=== PATIENT | female | born 1975 | race Caucasian/White ===

== ENCOUNTER → 2018-10-04 | Outpatient (CLI) | payer BC ==
--- NOTE | 2018-10-04 18:29 | ECHOF ---
Referral Reason:I10 Hypertension MEASUREMENTS -------- HEIGHT: 172.7 cm WEIGHT: 72.6 kg BP: 136/86 RVIDd: 2.8 cm (< 3.3) IVSd: 1.2 cm (0.6 - 1.1) LVIDd: 4.4 cm (3.9 - 5.3) LVPWd: 1.1 cm (0.6 - 1.1) IVSs: 1.7 cm LVIDs: 2.9 cm LVPWs: 1.5 cm LA Diam: 3.7 cm (2.7 - 3.8) LAESV Index (A-L): 26.28 ml/m Ao Diam: 2.9 cm (2.0 - 3.7) AV Cusp: 2.1 cm (1.5 - 2.6) MV EXCURSION: 19.176 mm (> 18.000) MV EF SLOPE: 73 mm/s (70 - 150) EPSS: 0.4 cm MV E Roberto Carlos: 0.73 m/s MV DecT: 253 ms MV A Roberto Carlos: 0.54 m/s MV E/A Ratio: 1.35 RAP: 5.00 mmHg RVSP: 19.65 mmHg FINDINGS -------- Sinus rhythm. This was a technically good study. The left ventricular size is normal. There is borderline concentric left ventricular hypertrophy. Overall left ventricular systolic function is normal with, an EF between 60 - 65 %. The right ventricle is normal in size. Normal LA size by volume 22+/-6 ml/m2. The right atrium is normal in size. The aortic valve is trileaflet and appears structurally normal. The mitral valve is normal. There is trace mitral regurgitation. Mild tricuspid regurgitation present. Right ventricular systolic pressure is normal at < 35 mmHg. There is no pulmonic regurgitation present. The aortic root size is normal. Normal inferior vena cava with normal inspiratory collapse consistent with estimated right atrial pre ssure of 5 mmHg. There is no pericardial effusion. CONCLUSIONS -------- 1. Sinus rhythm. 2. This was a technically good study. 3. The left ventricular size is normal. 4. There is borderline concentric left ventricular hypertrophy. 5. Overall left ventricular systolic function is normal with, an EF between 60 - 65 %. 6. Normal LA size by volume 22+/-6 ml/m2. 7. The aortic valve is trileaflet and appears structurally normal. 8. The mitral valve is normal. 9. There is trace mitral regurgitation. 10. Mild tricuspid regurgitation present. 11. Right ventricular systolic pressure is normal at < 35 mmHg. 12. There is no pulmonic regurgitation present. 13. The aortic root size is normal. 14. Normal inferior vena cava with normal inspiratory collapse consistent with estimated right atrial pressure of 5 mmHg. 15. There is no pericardial effusion. RETAIL TEAM MEMBER: Debra Bess RDCS
== END | disposition home or self-care (01) ==
LOC: RADECHMAIN 14:47
PROVIDERS: ATTEND Family Medicine
DX: I08.1 Rheumatic disorders of both mitral and tricuspid valves (principal)
CPT/HCPCS: 93306

== ENCOUNTER → 2020-12-22 | Outpatient (CLI) | payer OTHER | END | disposition home or self-care (01) | LOC: LABWHC1 09:03 | PROVIDERS: ATTEND Psychiatry & Neurology Neurology | DX: G60.3 Idiopathic progressive neuropathy (principal) | CPT/HCPCS: 36415; 82607; 82947; 84439; 84443 ==

== ENCOUNTER → 2021-02-16 | Outpatient (CLI) | payer OTHER ==
--- NOTE | 2021-02-17 02:34 | MR ---
EXAMINATION TYPE: MR brain wo/w con DATE OF EXAM: 02/16/2021 COMPARISON: HISTORY: Intermittent paresthesia of hand and foot, rule out MS. CONTRAST: Standard multiplanar, multisequence MRI departmental protocol utilizing 7 mL intravenous Gadavist tito olinium contrast. Ventricles have normal size. There is no mass effect nor midline shift. There is no evidence of intra cranial hemorrhage. Diffusion images show no evidence of an acute infarct. There is a linear area of mixed signal in the right posterior frontal lobe that extends to the fronta l horn of the right lateral ventricle. This could be previous shunt catheter path. There is some mini mal cortical increased signal on the FLAIR images in the insula of the right temporal lobe. The brain stem is intact. Cerebellum is intact. Sella turcica appears normal. Corpus callosum appears normal. T here is a single 4 mm focus of increased signal adjacent to the corpus callosum on the right side ant eriorly on the FLAIR images. The contrast images show no pathologic enhancement. There is normal enha ncement of the venous sinuses. IMPRESSION: Linear defect in the right posterior frontal lobe probably from shunt catheter. Single small focus of increased signal adjacent to the corpus callosum on the right side. I do not se e convincing evidence for demyelinating disease.
== END | disposition home or self-care (01) ==
LOC: RADMRIMAIN 17:59
PROVIDERS: ATTEND Psychiatry & Neurology Neurology
DX: G93.89 Other specified disorders of brain (principal)
CPT/HCPCS: 70553; A9585

== ENCOUNTER → 2021-03-25 | Outpatient (CLI) | payer OTHER ==
[2021-03-25 15:29] LABS: T4, Free (Free Thyroxine) 0.83 ng/dL (0.78-2.19)
--- NOTE | 2021-03-26 22:34 | MR ---
MRI CERVICAL SPINE: CLINICAL HISTORY: Headache, fatigue, neck pain, numbness and paresthesia hands for 18 months. TECHNIQUE: Multiplanar, multisequence imaging of the cervical spine is performed without IV contrast. Demyelinating disease protocol. COMPARISON: None. FINDINGS: Sagittal images of the cervical spine show the craniocervical junction to appear within nor mal limits. The cervical and upper thoracic spinal cord is normal in course, caliber, and signal. V ertebral alignment is anatomic. The vertebral body and intravertebral disk heights are normal. The bone marrow signal intensity is within normal limits. Axial images show C2-C3, C3-C4, and C4-C5 levels all to appear within normal limits. Axial images at C5-C6 level and mild/moderate broad-based posterior disc protrusion effacing the ante rior thecal sac, patent bilateral neural foramina. Axial images at C6-C7 and C7-T1 levels appear within normal limits. IMPRESSION: Degenerative changes C5-C6 level as detailed above. No abnormal T2 hyperintense lesions i n cord to suggest demyelinating disease involvement.
== END | disposition home or self-care (01) ==
LOC: RADMRIMAIN 14:27
PROVIDERS: ATTEND Psychiatry & Neurology Neurology
DX: M47.816 Spondylosis without myelopathy or radiculopathy, lumbar region (principal)
CPT/HCPCS: 36415; 72141; 84439; 84443; 84450; 84460; 86618

== ENCOUNTER → 2021-12-24 | Outpatient (CLI) | payer OTHER ==
[2021-12-24 16:51] LABS: Basophils # (A) 0.03 X 10*3/uL (0.00-0.10); Basophils % (A) 0.4 %; Eosinophils # (A) 0.14 X 10*3/uL (0.04-0.35); Eosinophils % (A) 1.8 %; HCT 43.1 % (37.2-46.3); HGB 13.6 g/dL (12.0-15.0); Immature Grans, Automated 0.3 %; Lymphocytes # (A) 1.55 X 10*3/uL (0.90-5.00); Lymphocytes % (A) 19.6 %; MCH 29.8 pg (27.0-32.0); MCHC 31.6 g/dL (32.0-37.0); MCV 94.5 fL (80.0-97.0); Mean Platelet Volume 10.4 fL (9.5-12.2); Monocytes # (A) 0.52 X 10*3/uL (0.20-1.00); Monocytes % (A) 6.6 %; NRBC Per 100 WBC 0 /100 WBCS (0.0-0.0); Neutrophils # (A) 5.66 X 10*3/uL (1.80-7.70); Neutrophils % (A) 71.3 %; Platelet Count 370 X 10*3/uL (140-440); RBC 4.56 X 10*6/uL (4.10-5.20); RDW 12.7 % (11.5-14.5); WBC 7.92 X 10*3/uL (4.50-10.00)
[2021-12-24 17:12] LABS: ALT 201 U/L (8-44); AST 68 U/L (13-35); African American GFR (CKD) 128.5 (60.0-200.0); Albumin 4.7 g/dL (3.8-4.9); Albumin/Globulin Ratio 2.24 (1.60-3.17); Alkaline Phosphatase 72 U/L (41-126); BUN/Creat Ratio 16.67 Ratio (12.00-20.00); C Reactive Protein <0.30 mg/dL (0.00-0.80); Calcium 9.4 mg/dL (8.7-10.3); Chloride 100 mmol/L (96-109); Follicle Stimulating Hormone 5.6 mIU/mL; Globulin 2.1 g/dL (1.6-3.3); Glucose 98 mg/dL (70-110); LDL Cholesterol,Calculated 169.9 mg/dL (0.0-131.0); Luteinizing Hormone 16.6 mIU/mL; Non-African American GFR(CKD) 110.9 (60.0-200.0); Potassium 4.4 mmol/L (3.5-5.5); Rheumatoid Factor, Qnt <10 IU/mL (0-15); Sodium 137 mmol/L (135-145); Total Protein 6.8 g/dL (6.2-8.2)
[2021-12-24 18:09] LABS: Erythrocyte Sedimentation Rate 3 mm/Hr (0-20)
== END | disposition home or self-care (01) ==
LOC: LABWHC1 10:16
PROVIDERS: ATTEND Family Medicine
DX: Z13.220 Encounter for screening for lipoid disorders (principal); R53.83 Other fatigue; N95.1 Menopausal and female climacteric states
CPT/HCPCS: 36415; 80053; 80061; 82040; 82306; 82607; 82626; 82672; 82746; 83001; 83002; 84144; 84270; 84403; 84439; 84443; 85025; 85652; 86038; 86140; 86431

== ENCOUNTER → 2022-01-06 | Outpatient (CLI) | payer OTHER | END | disposition home or self-care (01) | LOC: LABWHC1 09:31 | PROVIDERS: ATTEND Family Medicine | DX: E28.0 Estrogen excess (principal) | CPT/HCPCS: 36415; 82105; 82397; 83520; 86304; 86336 ==

== ENCOUNTER → 2022-01-13 | Outpatient (CLI) | payer OTHER ==
--- NOTE | 2022-01-13 15:53 | US ---
EXAMINATION TYPE: US pelvic complete DATE OF EXAM: 01/13/2022 COMPARISON: NONE CLINICAL HISTORY: E28.0 Estrogen excess. abn labs, possible menopause, IUD 2020 - no cycles since, TECHNIQUE: TA. Transabdominal sonographic images of the pelvis were acquired. Date of LMP: 2019 EXAM MEASUREMENTS: Uterus: 9.3 x 8.0 x 4.7 cm Endometrial Stripe: 0.4 cm Right Ovary: 2.6 x 2.7 x 2.0 cm Left Ovary: 2.9 x 1.8 x 2.9 cm 1. Uterus: Anteverted wnl 2. Endometrium: IUD seen within fundal portion 3. Right Ovary: dominate follicle seen = 1.8cm 4. Left Ovary: wnl 5. Bilateral Adnexa: wnl 6. Posterior cul-de-sac: wnl IMPRESSION: 1. Dominant follicle right ovary. 2. IUD as noted above.
== END | disposition home or self-care (01) ==
LOC: RADUSWWP 15:23
PROVIDERS: ATTEND Family Medicine
DX: N83.01 Follicular cyst of right ovary (principal); Z97.5 Presence of (intrauterine) contraceptive device
CPT/HCPCS: 76856

== ENCOUNTER → 2022-04-07 | Outpatient (CLI) | payer OTHER | END | disposition home or self-care (01) | LOC: LABPAT 14:57 | PROVIDERS: ATTEND Orthopaedic Surgery | DX: Z01.812 Encounter for preprocedural laboratory examination (principal); Z22.322 Carrier or suspected carrier of Methicillin resistant Staphylococcus aureus; M16.12 Unilateral primary osteoarthritis, left hip | CPT/HCPCS: 87070 ==

== ENCOUNTER 2022-04-17 06:06 | Day surgery (SDC) | payer OTHER ==
[2022-04-14 08:43] VITALS: BMI 25.0
--- NOTE | 2022-04-16 14:55 | HP ---
HISTORY AND PHYSICAL REASON FOR ADMISSION: Surgery scheduled for 04/17/2022 HISTORY OF PRESENT ILLNESS: Lucila Green is a 47-year-old patient seen with symptomatic left hip osteoarthritis. We discussed options for treatment. She elected to proceed with direct anterior left total hip arthroplasty. Consent was obtained. PAST MEDICAL HISTORY: Hypertension. SURGICAL HISTORY: section, wrist surgery. DAILY MEDICATIONS: Losartan, metoprolol, Diclofenac. ALLERGIES: None. SOCIAL HISTORY: She denies tobacco use. PHYSICAL EXAMINATION: Evaluation left hip: Diffuse tenderness. Limited range of motion, severe pain. Positive hip impingement sign. Straight-leg raise negative. Distal neurovascular exam intact. RADIOGRAPHS: Left hip radiographs reveal severe osteoarthritis. IMPRESSION: 1. Left hip osteoarthritis. 2. Hypertension. PLAN: Direct anterior left total hip arthroplasty. Surgery scheduled for 04/17/2022. MMODL / IJN: [id number] /
[~2022-04-17 06:06] MED LIST: ACETAMINOPHEN TAB 500 MG TAB PO PRN; MELOXICAM 7.5 MG TAB PO PRN; TRANEXAMIC ACID IN NACL,ISO-OS 1,000 MG in SALINE 1 100ML.BAG IVPB PRN
[2022-04-17 06:56] VITALS: RESP 16
[2022-04-17] MEDS ORDERED: LACTATED RINGERS 1,000 ML IV ONE ×3 (06:56→11:11)
[2022-04-17] MEDS ORDERED: ONDANSETRON 4 MG/2 ML VIAL ONE (07:04)
[2022-04-17] MEDS ORDERED: DEXAMETHASONE SOD PHOSPHATE 4 MG/ML 1 ML VIAL IV ONE (07:10)
[2022-04-17] MEDS ORDERED: fentaNYL (PF) 50 MCG/ML 2 ML AMP IV ONE (07:16)
[2022-04-17] MEDS ORDERED: MIDAZOLAM 2 MG/2 ML VIAL IV ONE (07:16)
[2022-04-17] MEDS ORDERED: MIDAZOLAM 2 MG/2 ML VIAL ONE (07:34)
[2022-04-17] MEDS ORDERED: hydrALAZINE HCL 20 MG/ML 1 ML VIAL ONE (07:34)
[2022-04-17] MEDS ORDERED: fentaNYL (PF) 50 MCG/ML 2 ML AMP ONE (07:34)
[2022-04-17] MEDS ORDERED: PROPOFOL 10 MG/ML 20 ML VIAL IV ONE (07:34)
[2022-04-17] MEDS ORDERED: ROPIVACAINE 5 MG/ML 30 ML VIAL ONE (07:34)
[2022-04-17] MEDS ORDERED: SUCCINYLCHOLINE CHLORIDE 100 MG/5 ML SYR IV ONE (07:34)
[2022-04-17] MEDS ORDERED: LIDOCAINE 2% INJ 20 MG/ML (2 ML VIAL) ONE (07:34)
[2022-04-17] MEDS ORDERED: HYDROmorphone (PF) 1 MG/ML ONE (07:34)
[2022-04-17] MEDS ORDERED: GLYCOPYRROLATE 0.2 MG/ML 2 ML VIAL ONE (07:34)
[2022-04-17] MEDS ORDERED: NEOSTIGMINE 1 MG/ML 10 ML VIAL ONE (07:34)
[2022-04-17] MEDS ORDERED: ROCURONIUM 10 MG/ML (5 ML VIAL) IV ONE (07:34)
[2022-04-17] MEDS ORDERED: TRANEXAMIC ACID IN NACL,ISO-OS 1,000 MG/100 ML BAG ONE (07:34)
[2022-04-17] MEDS ORDERED: ceFAZolin 1,000 MG in SODIUM CHLORIDE 0.9% 1,000 ML IRRIGATION ONE (08:12)
[2022-04-17] MEDS ORDERED: ONDANSETRON 4 MG/2 ML VIAL IVP PRN (09:33)
[2022-04-17] MEDS ORDERED: HYDROcodone/APAP 5-325MG 1 EACH TAB PO PRN (09:33)
[2022-04-17] MEDS ORDERED: HYDROcodone/APAP 7.5-325MG 1 EACH TAB PO PRN (09:33)
[2022-04-17] MEDS ORDERED: NALOXONE 0.4 MG/ML 1 ML VIAL IV PRN (09:33)
[2022-04-17] MEDS ORDERED: HYDROmorphone 1 MG/ML 1 ML SYRINGE IVP PRN (09:33)
[2022-04-17] MEDS ORDERED: HYDROmorphone 0.5 MG/0.5 ML SYRINGE IVP PRN ×2 (09:33)
--- NOTE | 2022-04-17 09:33 | P.OP ---
Date of Procedure: 04/17/22 Preoperative Diagnosis: Left hip osteoarthritis Postoperative Diagnosis: Left hip osteoarthritis Procedure(s) Performed: Direct anterior left total hip arthroplasty Implants: 1. Depuy Corail when 35 standard collar KA size 11 press-fit femoral stem 2. Depuy pinnacle 54 mm press-fit acetabular shell 3. Depuy pinnacle neutral polyethylene acetabular liner 36 mm ID 54 mm OD 4. Biolox delta ceramic femoral head +1.5 36 mm Anesthesia: GETA, regional (Fascia iliaca block) Surgeon: Cruz Hardin Divemaster #1: Nathaniel Valentin Estimated Blood Loss (ml): 750 Pathology: other (Femoral head) Condition: stable Disposition: PACU Indications for Procedure: 47-year-old patient seen with symptomatic left hip osteoarthritis. After having treatment options discussed, she elected to proceed with direct anterior left total hip arthroplasty. Operative Findings: see description of procedure Description of Procedure: The patient was taken to the operative suite after having a fascia iliaca block performed by the department of anesthesia for postoperative pain management. Patient underwent a spinal anesthetic by the department of anesthesia. Patient was then transferred to the [place] table. Patient was given preoperative IV antibiotics and TXA. Both lower extremities were placed in standard leg spars. The hip was then prepped and draped in the normal sterile orthopedic fashion. A standard anterior incision was made beginning 3 cm lateral and 1 cm distal to the ASIS extending 10 cm. Dissection was then carried down through the subcutaneous soft tissues down to the fascia overlying the tensor fascia justine. An incision was now made through the fascia. Careful dissection was taken down exposing the tensor fascia justine muscle. A Cobra retractor was now placed along the medial femoral neck and a second one along the lateral femoral neck. The venous circumflex vessels were now identified, cauterized and clipped. We identified the anterior hip capsule. An incision was made through the hip capsule along the lateral border. I performed a partial anterior capsulectomy. Retractors were now placed around the femoral neck itself. A femoral neck cut was now made with a sagittal saw. It was completed with an osteotome at the lateral neck area. The femoral head was now removed without difficulty. The extremity was now rotated to 60 of external rotation. It was locked in position. Residual labrum was now debrided out. Serial reaming was performed of the acetabulum while Ervin ORTIZ assisted holding an anterior retractor for exposure. Once we reached the appropriate size and a trial was position and fit nicely. The appropriate size was now chosen opened and made available. It was introduced into the acetabulum without difficulty. The C-arm/fluoroscopy was now brought into the operative field. We made sure we had a true AP pelvic view. We now under direct C-arm/fluoroscopy introduced into the acetabular component with appropriate version and inclination. I held the cup in appropriate position well Ervin ORTIZ used a mallet to seat the acetabular component. I noted the component now to be well seated and stable. Acetabular cup introduce her was removed. The C-arm was pulled back. An appropriate liner was introduced and clicked into position. It was felt to be stable. At this point retractors were removed. The extremity was now placed into 130 external rotation with no traction. The leg was now dropped to the ground and adducted. Appropriate retractors were now positioned along the proximal femur. We also placed our femoral look into position. Additional capsular releasing was performed to gain access to the proximal femur. We now used a box osteotome. A canal finder was now utilized. Serial broaching was now performed with the assistance of Ervin ORTIZ tapping the broaches down with a mallet while held the broach in appropriate rotation and position. This was done until we reached the appropriate size with good overall rotational stability. Appropriate calcar planing was performed. A trial head/neck was placed into position. The hip was now reduced. The C-arm/fluoroscopy was brought back into the operative field. I obtained an AP pelvis demonstrating adequate leg length alignment. The trial components appeared adequately size and position. The C- arm/fluoroscopy was pulled back. Retractors were repositioned and the hip was dislocated. The leg was again taken down to the ground and adducted. Appropriate retractors were repositioned as well as the femoral hook. All trial components were removed. The femoral implant was opened along with the femoral head. The femoral implant was introduced on the appropriate handle into our pre-broached area. I held the component position well Ervin ORTIZ used a mallet to seat the femoral component. The femoral component was now noted to be well seated and stable.. The femoral head was introduced with good positioning and fixation noted. Retractors were now removed. The hip was now reduced. There appeared be good positioning of the hip confirmed on intraoperative fluoroscopy. Spot films were obtained to document this. A second gram of TXA was given. The deep and superficial soft tissues were infiltrated with local analgesic. Bipolar cautery had been utilized intermittently through the procedure for hemostasis. The wound was irrigated copiously with pulse lavage mechanical irrigation. The fascia was repaired with Vicryl suture. The subcutaneous soft tissues were repaired in layers with Vicryl suture. The skin was approximated with pernio/Dermabond. Sterile dressings were applied. Patient was then awakened, transferred to a bed and taken to recovery in stable condition. Ervin ORTIZ assisted with the complex procedure.
--- NOTE | 2022-04-17 09:36 | XR ---
Fluoroscopy History: TOTAL ANT HIP Total left hip replacement. 2 images sent to PACS. 13 sec fl time.
--- NOTE | 2022-04-17 09:39 | FL ---
Fluoroscopy History: TOTAL ANT HIP LEFT Total left hip replacement. 2 images sent to PACS. 13 sec fl time.
[2022-04-17 09:50] VITALS: TEMP 97.2
--- NOTE | 2022-04-17 10:57 | P.ANPRN ---
Procedure Note - Anesthesia - Nerve Block Performed Left Erector Spinae Single Time Out Performed: Yes ([id number]) Date of Procedure: 04/17/22 Procedure Start Time: : Procedure Stop Time: Location of Patient: PreOp Indication: Acute Post-Operative Pain, Requested by Surgeon Specifically requested for management of pain by DrKevin: Cruz Hardin Sedation Type: Sedate with meaningful contact maintained Preparation: Sterile Prep Position: Prone Catheter: None Needle Types: Pajunk Needle Gauge: 21 Ultrasound used to visualize needle placement: Yes Ultrasound used to observe medication spread: Yes Injectate: 0.5% Ropivacaine (see comment for volume) (30cc) Blood Aspirated: No Pain Paresthesia on Injection Noted: No Resistance on Injection: Normal Image Stored and Saved: Yes Events: Uneventful and Well Tolerated
[2022-04-17 13:34] VITALS: BP 109/62; PULSE 56
== END 2022-04-17 14:16 | disposition home health service (06) ==
LOC: OR 06:06
PROVIDERS: ATTEND Orthopaedic Surgery
DX: M16.12 Unilateral primary osteoarthritis, left hip (principal); I10 Essential (primary) hypertension; Z98.891 History of uterine scar from previous surgery; Z98.890 Other specified postprocedural states; Z79.899 Other long term (current) drug therapy; Z86.73 Personal history of transient ischemic attack (TIA), and cerebral infarction without residual deficits
CPT/HCPCS: 97110; 97161; 64999; 86900; 86901; 86850; 88300; 73501; 36415; 27130; C1776; J2250; J0360; J1100; J2710; J0690 ×2; J2405; J3010; J1170 ×2; J2795; J0330; J2704; J2001

== ENCOUNTER → 2022-11-06 | Outpatient (CLI) | payer OTHER ==
[2022-11-06 14:15] LABS: Basophils # (A) 0.04 X 10*3/uL (0.00-0.10); Basophils % (A) 0.6 %; Eosinophils # (A) 0.13 X 10*3/uL (0.04-0.35); HCT 41.7 % (37.2-46.3); HGB 13.6 g/dL (12.0-15.0); Immature Grans, Automated 0.3 %; Lymphocytes # (A) 1.99 X 10*3/uL (0.90-5.00); Lymphocytes % (A) 30.6 %; MCH 30.6 pg (27.0-32.0); MCHC 32.6 g/dL (32.0-37.0); MCV 93.7 fL (80.0-97.0); Mean Platelet Volume 10.2 fL (9.5-12.2); Monocytes # (A) 0.35 X 10*3/uL (0.20-1.00); Monocytes % (A) 5.4 %; NRBC Per 100 WBC 0 /100 WBCS (0.0-0.0); Neutrophils # (A) 3.98 X 10*3/uL (1.80-7.70); Neutrophils % (A) 61.1 %; Platelet Count 331 X 10*3/uL (140-440); RBC 4.45 X 10*6/uL (4.10-5.20); RDW 12.2 % (11.5-14.5); WBC 6.51 X 10*3/uL (4.50-10.00)
[2022-11-06 14:44] LABS: % Iron Saturation 30.11 (12.00-45.00)
== END | disposition home or self-care (01) ==
LOC: LABWHC1 09:47
PROVIDERS: ATTEND Internal Medicine
DX: D50.9 Iron deficiency anemia, unspecified (principal); R74.01 Elevation of levels of liver transaminase levels
CPT/HCPCS: 36415; 83516; 83540; 83550; 85025; 86376

== ENCOUNTER 2024-08-14 09:47 | Emergency (ER) | payer BC, OTHER ==
[2024-08-14 11:49] LABS: Basophils % (A) 0 %; Eosinophils # (A) 0.1 k/uL (0-0.7); Eosinophils % (A) 2 %; HCT 39.9 % (34.0-46.0); HGB 13.8 gm/dL (11.4-16.0); Lymphocytes # (A) 1.8 k/uL (1.0-4.8); Lymphocytes % (A) 33 %; MCH 31.3 pg (25.0-35.0); MCHC 34.7 g/dL (31.0-37.0); MCV 90.3 fL (80.0-100.0); Mean Platelet Volume 7.4; Monocytes # (A) 0.3 k/uL (0-1.0); Monocytes % (A) 5 %; Neutrophils # (A) 3.2 k/uL (1.3-7.7); Neutrophils % (A) 57 %; Platelet Count 320 k/uL (150-450); RBC 4.42 m/uL (3.80-5.40); RDW 12.7 % (11.5-15.5); WBC 5.6 k/uL (3.8-10.6)
[2024-08-14 11:54] LABS: ALT 15 U/L (4-34); AST 26 U/L (14-36); African American GFR (CKD) >90 (>60 ml/min/1.73 sqM); Albumin 4.6 g/dL (3.5-5.0); Alkaline Phosphatase 50 U/L (38-126); Anion Gap 3 mmol/L; Blood Urea Nitrogen 10 mg/dL (7-17); Calcium 9.8 mg/dL (8.4-10.2); Carbon Dioxide 29 mmol/L (22-30); Chloride 107 mmol/L (98-107); Glucose 92 mg/dL (74-99); Non-African American GFR(CKD) >90 (>60 ml/min/1.73 sqM); Potassium 4.4 mmol/L (3.5-5.1); Sodium 139 mmol/L (137-145); Total Bilirubin 0.7 mg/dL (0.2-1.3); Total Protein 7.1 g/dL (6.3-8.2)
--- NOTE | 2024-08-14 12:12 | CT ---
EXAMINATION TYPE: CT brain wo con DATE OF EXAM: 08/14/2024 COMPARISON: None HISTORY: headache CT DLP: 1100.6 mGycm. Automated Exposure Control for Dose Reduction was Utilized. TECHNIQUE: CT scan of the head is performed without contrast. FINDINGS: The ventricles, basal cisterns and sulci over the convexities are within normal limits and there is n o mass effect or shift of midline structures. There are multiple metallic artifacts including a cluster in the right temporal lobe and a cluster in the right ambient cistern. It is uncertain whether these are postsurgical changes possibly related t o aneurysm repair. Adjacent to one of the patella foci in the right ambient cistern there is focal in creased density distal and acute hemorrhage in the subarachnoid space. There are small to moderate focal areas of decreased density in the right frontal white matter and le ft frontal white matter adjacent to the anterior falx could represent subacute ischemic infarcts. The posterior fossa is grossly normal. The intraorbital contents appear normal. Visualized paranasal sinuses and mastoid air cells are well aerated. Calvarium is intact. IMPRESSION: 1. Multiple metallic artifacts in the right temporal lobe and right ambient cistern with focal area o f acute hemorrhage in the region of the right ambient cistern possibly acute subarachnoid hemorrhage. 2. Multiple foci of decreased density in the frontal lobes bilaterally consistent with subacute infar cts. 3. MRI would be useful for further evaluation. [facility], , 08/14/2024 12:09 PM
--- NOTE | 2024-08-14 12:18 | CT ---
EXAMINATION TYPE: CT angio head neck DATE OF EXAM: 08/14/2024 HISTORY: headache history of brain aneurysm COMPARISON: None CT DLP: 497.8 mGycm. Automated Exposure Control for Dose Reduction was Utilized. TECHNIQUE: CTA scan of the head and neck is performed with IV Contrast, patient injected with 65 mL of Isovue 370, axial images are obtained, coronal and sagittal reformatted images are reviewed. 3D re constructed images are created on an independent workstation and reviewed. FINDINGS: FINDINGS: The brachiocephalic origins are widely patent and no significant stenosis. There is no significant stenosis of the common or internal carotid arteries within the neck. There is no stenosis of the vertebral arteries. Intracranially, there is evidence for aneurysm coils in the right middle cerebral artery trifurcation and in the right posterior cerebral artery. There is no occlusive disease intracranially. There is n o definite evidence of recurrent aneurysm. IMPRESSION:. 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 There is no e vidence of occlusive disease in the head or neck. NASCET criteria was used in interpretation of this exam? [facility], , 08/14/2024 12:16 PM
--- NOTE | 2024-08-14 12:26 | ED ---
General Adult HPI - General Chief complaint: Neuro Symptoms/Deficit Stated complaint: abn labs, numbness Time Seen by Provider: 08/14/24 10:00 Source: patient Mode of arrival: ambulatory Limitations: no limitations - History of Present Illness Initial comments: 49-year-old female with past medical history of cerebral aneurysm rupture who presents to the emergency department reporting complaints of headache, syncope and high blood pressure. States that her symptoms are similar to when she had an aneurysm rupture in 2019. Over the past couple of days she has had flashes and floaters in her vision. She has been complaining of a mild headache. Last night the patient reports to an episode of syncope. Today at work she was checking her blood pressure and it was high. States that when she had her aneurysm rupture her blood pressure was uncontrolled. She has been taking losartan and metoprolol without any missed doses. States that her blood pressure is normally within normal range. She does not take any blood thinners. No lateralizing weakness. No other alleviating, precipitating or modifying factors - Related Data Home Medications Medication Instructions Recorded Confirmed Acetaminophen [Tylenol Arthritis] 1,300 mg PO Q8HR PRN 04/14/22 01/03/23 Albuterol Sulfate [Proair Hfa] 1 - 2 puff INHALATION Q6HR PRN 04/14/22 01/03/23 Butalb/Acetaminophen/Caffeine 1 - 2 cap PO Q4HR PRN 04/14/22 01/03/23 [Fioricet 50-300-40 mg Capsule] Diclofenac Sodium [Voltaren] 75 mg PO DAILY 04/14/22 01/03/23 FLUoxetine HCL 40 mg PO QAM 04/14/22 01/03/23 Losartan Potassium 100 mg PO QAM 04/14/22 01/03/23 Metoprolol Succinate (ER) [Toprol 25 mg PO QAM 04/14/22 01/03/23 Xl] Aspirin [Adult Low Dose Aspirin EC] 81 mg PO DAILY 12/29/22 01/03/23 Ferrous Sulfate [Iron (65 MG 325 mg PO Q72H 12/29/22 01/03/23 Elemental)] Allergies Allergy/AdvReac Type Severity Reaction Status Date / Time No Known Allergies Allergy Verified 08/14/24 10:01 Review of Systems ROS Statement: Those systems with pertinent positive or pertinent negative responses have been documented in the HPI. ROS Other: All systems not noted in ROS Statement are negative. Past Medical History Past Medical History: Fibromyalgia, Hypertension, Osteoarthritis (OA), Rheumatoid Arthritis (RA) Additional Past Medical History / Comment(s): Hemmorhagic stroke in 2019. History of Any Multi-Drug Resistant Organisms: None Reported Past Surgical History: Section, Orthopedic Surgery Additional Past Surgical History / Comment(s): lt wrist, D&C Past Anesthesia/Blood Transfusion Reactions: No Reported Reaction Past Psychological History: ADD/ADHD Smoking Status: Former smoker Past Alcohol Use History: None Reported Past Drug Use History: Marijuana - Past Family History Mother Family Medical History: No Reported History Father Family Medical History: No Reported History General Exam Limitations: no limitations General appearance: alert, in no apparent distress Head exam: Present: atraumatic, normocephalic, normal inspection Eye exam: Present: normal appearance, PERRL, EOMI. Absent: scleral icterus, conjunctival injection, periorbital swelling ENT exam: Present: normal exam, mucous membranes moist Neck exam: Present: normal inspection. Absent: tenderness, meningismus, lymphadenopathy Respiratory exam: Present: normal lung sounds bilaterally. Absent: respiratory distress, wheezes, rales, rhonchi, stridor Cardiovascular Exam: Present: regular rate, normal rhythm, normal heart sounds. Absent: systolic murmur, diastolic murmur, rubs, gallop, clicks GI/Abdominal exam: Present: soft, normal bowel sounds. Absent: distended, tenderness, guarding, rebound, rigid Extremities exam: Present: normal inspection, full ROM, normal capillary refill. Absent: tenderness, pedal edema, joint swelling, calf tenderness Back exam: Present: normal inspection Neurological exam: Present: alert, oriented X3, CN II-XII intact Psychiatric exam: Present: normal affect, normal mood Skin exam: Present: warm, dry, intact, normal color. Absent: rash Course Vital Signs 08/14/24 08/14/24 09:56 12:33 Temperature 97.8 F Pulse Rate 58 L 63 Respiratory 18 20 Rate Blood Pressure 213/103 192/123 O2 Sat by Pulse 100 99 Oximetry Medical Decision Making - Medical Decision Making Was pt. sent in by a medical professional or institution (, PA, NURSING PROGRAM COORDINATOR, urgent care, hospital, or correction...) When possible be specific @ -Patient was sent in by her neurosurgery office Did you speak to anyone other than the patient for history (EMS, parent, family, police, friend...)? What history was obtained from this source @ -No Did you review nursing and triage notes (agree or disagree)? Why? @ -I reviewed and agree with nursing and triage notes Were old charts reviewed (outside hosp., previous admission, EMS record, old EKG, old radiological studies, urgent care reports/EKG's, correction records)? Report findings @ -No old charts were reviewed Differential Diagnosis (chest pain, altered mental status, abdominal pain women, abdominal pain men, vaginal bleeding, weakness, fever, dyspnea, syncope, headache, dizziness, GI bleed, back pain, seizure, CVA, palpatations, mental health, musculoskeletal)? @ -Differential Headache: Migraine, tension, cluster, carbon monoxide, central venous thrombosis, pension karma temporal arteritis, acute closure glaucoma, intercranial hemorrhage, mastoiditis, sinusitis, head injury, this is not meant to be an all-inclusive list. EKG interpreted by me (3pts min.). @ -Not done X-rays interpreted by me (1pt min.). @ -None done CT interpreted by me (1pt min.). @ -Yes and demonstrates multiple metallic artifacts in the right temporal lobe and right ambient cistern with focal area of acute hemorrhage in the region. Multiple foci of decreased density in the frontal lobes bilaterally consistent with subacute infarcts U/S interpreted by me (1pt. min.). @ -None done What testing was considered but not performed or refused? (CT, X-rays, U/S, labs)? Why? @ -None What meds were considered but not given or refused? Why? @ -None Did you discuss the management of the patient with other professionals (professionals i.e. , PA, NURSING PROGRAM COORDINATOR, lab, RT, psych nurse, oncology social work, radiologic technology teacher, teacher, accounts officer, casey saw operator)? Give summary @ -Spoke with Dr. Carlisle at [facility] Was smoking cessation discussed for >3mins.? @ -No Was critical care preformed (if so, how long)? @ -yes, 40 minutes Were there social determinants of health that impacted care today? How? (Homelessness, low income, unemployed, alcoholism, drug addiction, transportation, low edu. Level, literacy, decrease access to med. care, care home, rehab)? @ -No Was there de-escalation of care discussed even if they declined (Discuss DNR or withdrawal of care, Hospice)? DNR status @ -No What co-morbidities impacted this encounter? (DM, HTN, Smoking, COPD, CAD, Cancer, CVA, ARF, Chemo, Hep., AIDS, mental health diagnosis, sleep apnea, morbid obesity)? @ -History of cerebral aneurysm rupture Was patient admitted / discharged? Hospital course, mention meds given and route, prescriptions, significant lab abnormalities, going to OR and other pertinent info. @ -Upon arrival patient seen and evaluated in room 10. Thorough history and physical exam was performed. IV access was established. Laboratory studies are conducted. Patient does go for CT which does identify possible area of subarachnoid hemorrhage adjacent to the patient's aneurysm coils. Because of this we did recommend transfer to a facility with neurosurgical capabilities. Patient wants to go back to [facility] where her neurosurgeon is added. Called and spoke with Dr. Carlisle who agrees to accept the patient as a transfer. I did order Cardene. Patient's last blood pressure was 138/92 and therefore the Cardene will be held but administered if the blood pressures greater than 140. Patient will be transferred priority 1 to [facility]. COBRA forms are signed. Patient transferred in stable condition Undiagnosed new problem with uncertain prognosis? @ -Yes Drug Therapy requiring intensive monitoring for toxicity (Heparin, Nitro, Insulin, Cardizem)? @ -No Were any procedures done? @ -No Diagnosis/symptom? @ -Syncope, possible subarachnoid hemorrhage due to aneurysmal rupture Acute, or Chronic, or Acute on Chronic? @ -Acute Uncomplicated (without systemic symptoms) or Complicated (systemic symptoms)? @ -Complicated Side effects of treatment? @ -No Exacerbation, Progression, or Severe Exacerbation? @ -No Poses a threat to life or bodily function? How? (Chest pain, [place], [place], pneumonia, PE, COPD, DKA, ARF, appy, cholecystitis, CVA, Diverticulitis, Homicidal, Suicidal, threat to staff... and all critical care pts) @ -Yes as patient has subarachnoid hemorrhage - Lab Data Result diagrams: 08/14/24 11:30 08/14/24 11:30 Lab Results 10/10/24 10/10/24 Range/Units 11:30 11:30 WBC 5.6 (3.8-10.6) k/uL RBC 4.42 (3.80-5.40) m/uL Hgb 13.8 (11.4-16.0) gm/dL Hct 39.9 (34.0-46.0) % MCV 90.3 (80.0-100.0) fL MCH 31.3 (25.0-35.0) pg MCHC 34.7 (31.0-37.0) g/dL RDW 12.7 (11.5-15.5) % Plt Count 320 (150-450) k/uL MPV 7.4 Neutrophils % 57 % Lymphocytes % 33 % Monocytes % 5 % Eosinophils % 2 % Basophils % 0 % Neutrophils # 3.2 (1.3-7.7) k/uL Lymphocytes # 1.8 (1.0-4.8) k/uL Monocytes # 0.3 (0-1.0) k/uL Eosinophils # 0.1 (0-0.7) k/uL Basophils # 0.0 (0-0.2) k/uL Sodium 139 (137-145) mmol/L Potassium 4.4 (3.5-5.1) mmol/L Chloride 107 (98-107) mmol/L Carbon Dioxide 29 (22-30) mmol/L Anion Gap 3 mmol/L BUN 10 (7-17) mg/dL Creatinine 0.61 (0.52-1.04) mg/dL Est GFR (CKD-EPI)AfAm >90 (>60 ml/min/1.73 sqM) Est GFR (CKD-EPI)NonAf >90 (>60 ml/min/1.73 sqM) Glucose 92 (74-99) mg/dL Calcium 9.8 (8.4-10.2) mg/dL Total Bilirubin 0.7 (0.2-1.3) mg/dL AST 26 (14-36) U/L ALT 15 (4-34) U/L Alkaline Phosphatase 50 (38-126) U/L Total Protein 7.1 (6.3-8.2) g/dL Albumin 4.6 (3.5-5.0) g/dL Disposition Clinical Impression: Syncope, Hypertension, Hx of cerebral aneurysm repair Disposition: OTHER INSTITUTION NOT DEFINED Condition: Serious Is patient prescribed a controlled substance at d/c from ED?: No Referrals: Zurdo Landon MD [Primary Care Provider] - 1-2 days Time of Disposition: 12:31 - Out of Hospital Transfer - Req. Specs Out of Hospital Transfer - Requested Specifics: Other Emergency Center ([facility])
[2024-08-14] MEDS: niCARdipine 20 MG in SODIUM CHLORIDE 0.9% 192 ML IV ONE (12:32)
[2024-08-14 12:54] VITALS: RESP 18; TEMP 98
[2024-08-14 13:15] VITALS: BP 138/82; PULSE 72
== END 2024-08-14 13:12 | disposition other institution (70) ==
LOC: EC 09:47
CPT/HCPCS: 36415; 70450; 70496; 70498; 80053; 85025; 96365; 99285

== ENCOUNTER → 2024-08-22 | Outpatient (CLI) | payer BC | END | disposition home or self-care (01) | LOC: LABWHC1 11:42 | PROVIDERS: ATTEND Dermatology | DX: L40.0 Psoriasis vulgaris (principal) | CPT/HCPCS: 36415; 86480 ==

== ENCOUNTER → 2024-09-03 | Outpatient (CLI) | payer BC ==
--- NOTE | 2024-09-03 10:22 | XR ---
EXAMINATION TYPE: XR chest 2V DATE OF EXAM: 09/03/2024 COMPARISON: None HISTORY: 49-year-old female L40.0 psoriasis vulgaris, positive TB test TECHNIQUE: Frontal and lateral views FINDINGS: The cardiomediastinal silhouette, aorta, and pulmonary vasculature are within normal limits. Lungs an d pleural spaces are clear. IMPRESSION: No acute cardiopulmonary process. [facility], , 09/03/2024 10:19 AM
== END | disposition home or self-care (01) ==
LOC: RADXRMAIN 09:09
PROVIDERS: ATTEND Dermatology
CPT/HCPCS: 71046